=== PATIENT | male | born 1965 | race African-American/Black ===

== ENCOUNTER 2018-03-05 06:01 | Emergency (ER) | payer SELFPAY ==
[2018-03-05] MEDS ORDERED: CYCLOBENZAPRINE 10 MG TAB ONE (06:39)
[2018-03-05] MEDS ORDERED: HYDROCODONE/APAP 10/325 TAB ONE (06:39)
--- NOTE | 2018-03-05 07:12 | EDPHYS ---
Physician Documentation [facility] Name: Daniel Garcia Jr Age: 52 yrs Sex: Male : 1965 Arrival Date: 03/05/2018 Time: 06:02 Bed 15 Private MD: ED Physician Hugo Fernandez HPI: 03/05 06:15 This 52 yrs old Black Male presents to ER via Ambulatory with complaints of Shoulder kav Pain - radiating to hand. 06:18 The patient or guardian complains of pain, that is acute. right trapezius. Context: The kav problem was sustained at an unknown site, resulted from an unknown reason, The patient experiences decreased range of motion, when attempts to raise arm, The patient reports no obvious deformity. Onset: The symptoms/episode began/occurred acutely, 3 day(s) ago. Modifying factors: the symptoms are alleviated by nothing. The symptoms are aggravated by movement. Associated signs and symptoms: Pertinent positives: severe pain, of the right trapezius, Pertinent negatives: abdominal pain, chest pain, neck pain. Severity of symptoms: At their worst the symptoms were moderate, just prior to arrival. Treatment prior to arrival includes: prescription medications, Ultram or Ultracet. The patient has not experienced similar symptoms in the past. The patient has been recently seen by a physician: the patient's primary care provider. 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 kav 07:06 pt reports being seen approximately one month ago at urgent care in [facility] and was kav given a prescription for tramadol but reports that it is not effective in relieving the pain. he also reports that he was instructed to follow-up with an outpatient mri however, he reports "..no insurance so can't afford it". he is requesting narcotic medication stronger than tramadol.. Historical: - Allergies: 06:14 No Known Allergies; tl2 - Home Meds: 06:14 aspirin 81 mg Oral chew 1 tab once daily [Active]; tramadol 50 mg Oral tab 1 tab every tl2 4 hours [Active]; - PMHx: 06:14 Myocardial infarction; tl2 - PSHx: 06:14 stent placement; tl2 - Immunization history:: Adult Immunizations up to date. - Social history:: Smoking status: Patient uses tobacco products, smokes one-half pack cigarettes per day. - Ebola Screening: : No symptoms or risks identified at this time. - Family history:: not pertinent. - Hospitalizations: : No recent hospitalization is reported. ROS: 06:21 Constitutional: Negative for fever, chills, and weight loss, Eyes: Negative for injury, kav pain, redness, and discharge, ENT: Negative for injury, pain, and discharge, Neck: Negative for injury, pain, and swelling, Cardiovascular: Negative for chest pain, palpitations, and edema, Respiratory: Negative for shortness of breath, cough, wheezing, and pleuritic chest pain, Abdomen/GI: Negative for abdominal pain, nausea, vomiting, diarrhea, and constipation, Back: Negative for injury and pain, : Negative for injury, bleeding, discharge, and swelling, Skin: Negative for injury, rash, and discoloration, Neuro: Negative for headache, weakness, numbness, tingling, and seizure, Psych: Negative for depression, anxiety, suicide ideation, homicidal ideation, and hallucinations, Allergy/Immunology: Negative for hives, rash, and allergies, Endocrine: Negative for neck swelling, polydipsia, polyuria, polyphagia, and marked weight changes. 06:21 MS/extremity: Positive for decreased range of motion, pain, Negative for injury or acute deformity, contusion, deformity, ecchymosis, erythema, laceration, paresthesias, swelling, tenderness, tingling, warmth. Exam: 06:21 Constitutional: This is a well developed, well nourished patient who is awake, alert, kav and in no acute distress. Head/Face: Normocephalic, atraumatic. Eyes: Pupils equal round and reactive to light, extra-ocular motions intact. Lids and lashes normal. Conjunctiva and sclera are non-icteric and not injected. Cornea within normal limits. Periorbital areas with no swelling, redness, or edema. ENT: Nares patent. No nasal discharge, no septal abnormalities noted. Tympanic membranes are normal and external auditory canals are clear. Oropharynx with no redness, swelling, or masses, exudates, or evidence of obstruction, uvula midline. Mucous membranes moist. Neck: Trachea midline, no thyromegaly or masses palpated, and no cervical lymphadenopathy. Supple, full range of motion without nuchal rigidity, or vertebral point tenderness. No Meningismus. Chest/axilla: Normal chest wall appearance and motion. Nontender with no deformity. No lesions are appreciated. Cardiovascular: Regular rate and rhythm with a normal S1 and S2. No gallops, murmurs, or rubs. Normal PMI, no JVD. No pulse deficits. Respiratory: Lungs have equal breath sounds bilaterally, clear to auscultation and percussion. No rales, rhonchi or wheezes noted. No increased work of breathing, no retractions or nasal flaring. Abdomen/GI: Soft, non-tender, with normal bowel sounds. No distension or tympany. No guarding or rebound. No evidence of tenderness throughout. Back: No spinal tenderness. No costovertebral tenderness. Full range of motion. Skin: Warm, dry with normal turgor. Normal color with no rashes, no lesions, and no evidence of cellulitis. Neuro: Awake and alert, GCS 15, oriented to person, place, time, and situation. Cranial nerves II-XII grossly intact. Motor strength 5/5 in all extremities. Sensory grossly intact. Cerebellar exam normal. Normal gait. Psych: Awake, alert, with orientation to person, place and time. Behavior, mood, and affect are within normal limits. 06:21 Musculoskeletal/extremity: Extremities: noted in the right trapezius: ROM: limited active range of motion, Circulation is intact in all extremities. Pulses: are normal with no appreciated deficits, noted to be 2+ in the , Sensation intact. Joints: the right trapezius displays limited range of motion. Vital Signs: 06:14 BP 168 / 88; Pulse 77; Resp 18; Temp 98.2(O); Pulse Ox 97% on R/A; Weight 99.79 kg; tl2 Height 6 ft. 3 in. (190.50 cm); Pain 3/10; 07:05 BP 151 / 84; Pulse 81; Resp 18; Pulse Ox 97% on R/A; tl2 06:14 Body Mass Index 27.50 (99.79 kg, 190.50 cm) tl2 MDM: 06:08 Medical screening is not applicable. kav 06:23 Data reviewed: vital signs, nurses notes. kav 07:06 Medication response: cyclobenzaprine and norco 10/325 with minimal relief. . Response kav to treatment: the patient's symptoms have mildly improved after treatment. Administered Medications: 06:40 Drug: Cyclobenzaprine 10 mg Route: PO; tl2 07:39 Follow up: Response: No adverse reaction; Pain is decreased jl7 06:41 Drug: [place] 10 mg-325 mg 1 tabs Route: PO; tl2 07:39 Follow up: Response: No adverse reaction; Pain is decreased jl7 Disposition: 03/05/18 07:11 Discharged to Home. Impression: Sprain of other specified parts of right shoulder girdle. - Condition is Stable. - Discharge Instructions: Shoulder Sprain. - Prescriptions for Cyclobenzaprine 10 mg Oral Tablet - take 1 tablet by ORAL route every 8 hours As needed; 30 tablet. - Work release form, Medication Reconciliation Form, Thank You Letter, Antibiotic Education, Prescription Opioid Use form. - Follow up: Private Physician; When: 5 - 6 days; Reason: Recheck today's complaints, Continuance of care, Re-evaluation by your physician. - Problem is new. - Symptoms have improved. - Notes: follow-up with outpatient mri of right shoulder and scapular area Addendum: 03/10/2018 07:02 Co-signature as Attending Physician, Hugo Fernandez MD. r n Signatures: Tamela Wright, DIGITAL AD TRAFFICKER DIGITAL AD TRAFFICKER Hugo Whatley MD MD rn Knox, Taylor, RN RN tl2 Yudith Mccarthy RN RN jl7 Corrections: (The following items were deleted from the chart) 03/05 07:39 07:11 03/05/2018 07:11 Discharged to Home. Impression: Sprain of other specified parts jl7 of right shoulder girdle. Condition is Stable. Forms are Medication Reconciliation Form, Thank You Letter, Antibiotic Education, Prescription Opioid Use. Follow up: Private Physician; When: 5 - 6 days; Reason: Recheck today's complaints, Continuance of care, Re-evaluation by your physician. Problem is new. Symptoms have improved. kamichael
--- NOTE | 2018-03-05 07:12 | ER ---
Nurse's Notes [facility] Name: Daniel Garcia Jr Age: 52 yrs Sex: Male : 1965 Arrival Date: 03/05/2018 Time: 06:02 Bed 15 Private MD: Diagnosis: Sprain of other specified parts of right shoulder girdle Presentation: 03/05 06:12 Presenting complaint: Patient states: Right shoulder pain radiating to R hand for the tl2 past two weeks. Reports tingling and numbness in two fingers. States he had a steroid shot and tramadol from his PCP but it hasn't helped. Transition of care: patient was not received from another setting of care. Onset of symptoms was February 17, 2018. Risk Assessment: Do you want to hurt yourself or someone else? Patient reports no desire to harm self or others. Initial Sepsis Screen: Does the patient meet any 2 criteria? No. Patient's initial sepsis screen is negative. Does the patient have a suspected source of infection? No. Patient's initial sepsis screen is negative. Care prior to arrival: None. 06:12 Method Of Arrival: Ambulatory tl2 06:12 Acuity: CRISTOPHER 4 tl2 Triage Assessment: 06:14 General: Appears in no apparent distress. uncomfortable, Behavior is calm, cooperative, tl2 appropriate for age. Pain: Complains of pain in right shoulder Pain radiates to right hand and right arm Pain currently is 3 out of 10 on a pain scale. Quality of pain is described as sharp, tingling. Neuro: Level of Consciousness is awake, alert, obeys commands, Oriented to person, place, time, situation. Cardiovascular: Denies chest pain. Respiratory: Airway is patent Respiratory effort is even, unlabored, Respiratory pattern is regular, symmetrical. GI: No signs and/or symptoms were reported involving the gastrointestinal system. : No signs and/or symptoms were reported regarding the genitourinary system. Derm: Skin is pink, warm \T\ dry. Musculoskeletal: Circulation, motion, and sensation intact. Historical: - Allergies: 06:14 No Known Allergies; tl2 - Home Meds: 06:14 aspirin 81 mg Oral chew 1 tab once daily [Active]; tramadol 50 mg Oral tab 1 tab every tl2 4 hours [Active]; - PMHx: 06:14 Myocardial infarction; tl2 - PSHx: 06:14 stent placement; tl2 - Immunization history:: Adult Immunizations up to date. - Social history:: Smoking status: Patient uses tobacco products, smokes one-half pack cigarettes per day. - Ebola Screening: : No symptoms or risks identified at this time. - Family history:: not pertinent. - Hospitalizations: : No recent hospitalization is reported. Screenin:16 Abuse screen: Denies threats or abuse. Nutritional screening: No deficits noted. tl2 Tuberculosis screening: No symptoms or risk factors identified. Fall Risk None identified. Assessment: 06:15 General: see triage assessment. tl2 07:05 Reassessment: Patient appears in no apparent distress at this time. Patient and/or tl2 family updated on plan of care and expected duration. Pain level reassessed. Patient is alert, oriented x 3, equal unlabored respirations, skin warm/dry/pink. SHIATSU THERAPIST at bedside discussing prescriptions. Vital Signs: 06:14 BP 168 / 88; Pulse 77; Resp 18; Temp 98.2(O); Pulse Ox 97% on R/A; Weight 99.79 kg; tl2 Height 6 ft. 3 in. (190.50 cm); Pain 3/10; 07:05 BP 151 / 84; Pulse 81; Resp 18; Pulse Ox 97% on R/A; tl2 06:14 Body Mass Index 27.50 (99.79 kg, 190.50 cm) tl2 ED Course: 06:02 Patient arrived in ED. am2 06:07 Tamela Wright FNP [facility] kav 06:07 Hugo Fernandez MD is Attending Physician. kav 06:13 Triage completed. tl2 06:14 Arm band placed on right wrist. tl2 06:16 Patient has correct armband on for positive identification. Bed in low position. Call 2 light in reach. Side rails up X 1. 06:16 No provider procedures requiring assistance completed. tl2 07:11 Yudith Mccarthy, NURIA is Primary Nurse. jl7 07:38 Patient did not have IV access during this emergency room visit. jl7 Administered Medications: 06:40 Drug: Cyclobenzaprine 10 mg Route: PO; tl2 07:39 Follow up: Response: No adverse reaction; Pain is decreased jl7 06:41 Drug: [place] 10 mg-325 mg 1 tabs Route: PO; tl2 07:39 Follow up: Response: No adverse reaction; Pain is decreased jl7 Outcome: 07:11 Discharge ordered by . chandrika 07:38 Discharged to home ambulatory. jl7 07:38 Condition: stable 07:38 Discharge instructions given to patient, Instructed on discharge instructions, follow up and referral plans. medication usage, Demonstrated understanding of instructions, follow-up care, medications. 07:39 Patient left the ED. jl7 Signatures: Tamela Wright, SOLAR INSTALLER PV Jessika Pulido RN RN tl2 Yudith Mccarthy RN RN jl7 Danyell Peraza am2
== END 2018-03-05 07:39 | disposition home or self-care (01) ==
LOC: ER 06:01
DX: S43.81XA Sprain of other specified parts of right shoulder girdle, initial encounter (principal); X58.XXXA Exposure to other specified factors, initial encounter; Y92.9 Unspecified place or not applicable; I25.2 Old myocardial infarction; Z95.5 Presence of coronary angioplasty implant and graft; F17.210 Nicotine dependence, cigarettes, uncomplicated
CPT/HCPCS: 99283